=== PATIENT | female | born 2000 | race Caucasian/White ===

== ENCOUNTER 2020-04-12 09:08 | Emergency (ER) | payer BC, SELFPAY ==
--- NOTE | ~2020-04-12 | XR_ITS ---
EXAMINATION: XR chest 1V portable DATE: 04/12/2020 09:55 INDICATION: Syncope. TECHNIQUE: A single frontal view of the chest was obtained. COMPARISON: None. FINDINGS: A calcified left lung nodule is consistent with old granulomatous disease. No pleural effus ion or pneumothorax. The heart size is normal. IMPRESSION: 1. No acute cardiopulmonary disease. Reviewed, dictated and finalized at location B.
[2020-04-12 09:05] VITALS: BP 117/76; PULSE 70; RESP 18; TEMP 36.6; O2SAT 99
[2020-04-12 09:09] VITALS: PULSE 59
--- NOTE | 2020-04-12 09:11 | ECG_ITS ---
Measurements Intervals [place] Rate: 59 P: 24 VA: 138 QRS: 66 QRSD: 93 T: 47 QT: 384 QTc: 382 Interpretive Statements SINUS BRADYCARDIA WITH SINUS ARRHYTHMIA BASELINE ARTIFACT- I, II, III, AVR, AVL, AVF BORDERLINE ECG Electronically Signed On 04-12-2020 12:37:21 CDT by Steven Hammer D.O.
--- NOTE | 2020-04-12 09:18 | ED.SYNCOPE ---
HPI - Syncope General Chief Complaint: Syncope Stated Complaint: Syncopal Source: RN notes reviewed History of Present Illness HPI narrative: Patient presents emergency department via EMS for syncopal episode. Patient states she was at college today on syllabus daily or staying appearing the syllabus be red when she began to feel hot and sweaty. She states she was given aspirin go to the restroom to get a drink when she had a syncopal episode. She states she felt fine prior to going to class and states she feels fine at this time with no other symptoms. She denies any recent illness. Denies any fevers or chills chest pain shortness of breath abdominal pain nausea vomiting or any other symptoms Related Data Allergies Allergy/AdvReac Type Severity Reaction Status Date / Time No Known Allergies Allergy Verified 04/12/20 09:10 Review of Systems Review of Systems: Narrative: Gen.: Denies fevers or chills ENT: Denies congestion Respiratory: Denies shortness of breath or cough CV: See HPI GI: Denies abdominal pain nausea, emesis or diarrhea Musculoskeletal: Denies back pain or muscle pain Neuro: Denies numbness, tingling, weakness or focal weakness Skin: Denies rash Except as documented, all other systems reviewed and negative [facility] Past Medical History Medical History (Updated 04/12/20 @ 11:19 by Joaquni Uriarte DO) Patient denies significant medical history Social History Social History (Updated 04/12/20 @ 09:19 by Joaquin Uriarte DO) Smoking status: Never smoker Exam Narrative: Exam Narrative: APPEARANCE: No acute distress, nontoxic, resting in bed EYES: EOMI HEENT: Normocephalic, atraumatic, OMM RESPIRATORY: No respiratory distress Clear to auscultation bilaterally with no rhonchi wheezing or rales. CARDIOVASCULAR: Regular rate and rhythm without murmurs rubs or gallops. ABDOMINAL: Soft, nontender, nondistended, no rebound or guarding MUSCULOSKELETAl: Moves all extremities. No clubbing, cyanosis or edema. NEURO: Awake and alert x 3. Following commands, speech normal, no focal deficits SKIN:: Warm, dry. No rashes lesions or abrasions PSYCHIATRIC: Normal affect/mood, Course Course Emergency Course: Discussed with patient results of workup and diagnosis. Discussed need for follow-up with primary care, proper use of medication, and reasons to return to the emergency department. Patient understands and agrees to current treatment plan Vital Signs Vital signs: Vital Signs Temperature 97.8 F 04/12/20 09:05 Pulse Rate 70 04/12/20 09:05 Respiratory Rate 18 04/12/20 09:05 Blood Pressure 117/76 04/12/20 09:05 Pulse Oximetry 99 04/12/20 09:05 Temperature 97.8 F 04/12/20 09:05 Pulse Rate 64 04/12/20 11:01 Respiratory Rate 18 04/12/20 09:05 Blood Pressure 126/65 04/12/20 11:01 Pulse Oximetry 99 04/12/20 09:05 MDM - Syncope MDM Narrative Medical decision making narrative: Patient's episode of syncope is felt due to high risk cause. Syncopal episode was brief and patient is now back to normal mental status. EKG is reviewed without high-risk changes for syncope: There are no signs of prolonged QT or Brugada syndrome. Patient ambulates with a steady gait and is felt to be a reasonable candidate for further evaluation as an outpatient Lab Data Result diagrams: 04/12/20 09:31 04/12/20 09:31 Labs: Lab Results 04/12/20 04/12/20 04/12/20 Range/Units 09:31 09:31 09:32 WBC 6.8 (4.5-10.0) K/mm3 RBC 4.62 (4.2-5.4) M/mm3 Hgb 13.6 (12.0-15.0) g/dL Hct 39.4 (37.0-47.0) % MCV 85.3 (80-100) fl MCH 29.4 (26-34) pg MCHC 34.5 (32-36) g/dl RDW 11.4 L (11.5-14.5) % Plt Count 261 (150-375) k/mm3 MPV 10.3 (7.4-10.4) fl Immature Gran % (Auto) 0.4 (0-0.5) % Neut % (Auto) 64.5 (45.5-73.1) % Lymph % (Auto) 27.8 (18.3-44.2) % [place] % (Auto) 5.1 (2.6-8.5) % Eos % (Auto) 1.6 (0-4.4) % Baso %
[2020-04-12 09:39] LABS: Basophils Percent Auto 0.6 % (0.2-1.2); Eosinophils Absolute Auto 0.1 K/mm3 (0-0.3); Eosinophils Percent Auto 1.6 % (0-4.4); Hematocrit 39.4 % (37.0-47.0); Hemoglobin 13.6 g/dL (12.0-15.0); Immature Granulocyte Absolute 0.03 K/mm3 (0.00-0.031); Immature Granulocyte Percent A 0.4 % (0-0.5); Lymphocytes Percent Auto 27.8 % (18.3-44.2); Mean Corpuscular HGB Conc 34.5 g/dl (32-36); Mean Corpuscular Hemoglobin 29.4 pg (26-34); Mean Corpuscular Volume 85.3 fl (80-100); Mean Platelet Volume 10.3 fl (7.4-10.4); Monocytes Absolute Auto 0.4 K/mm3 (0.1-0.6); Monocytes Percent Auto 5.1 % (2.6-8.5); Neutrophils Absolute Auto 4.4 K/mm3 (1.3-6.7); Neutrophils Percent Auto 64.5 % (45.5-73.1); Platelet Count Result 261 k/mm3 (150-375); Red Blood Count 4.62 M/mm3 (4.2-5.4); Red Cell Distribution Width 11.4 % (11.5-14.5); White Blood Count 6.8 K/mm3 (4.5-10.0)
[2020-04-12 09:42] LABS: Add Urine Microscopic? YES; Appearance Urine Cloudy (Clear); Bacteria Urine Trace /hpf; Bilirubin Urine Negative (Negative); Blood Urine 1+ (Negative); Color Urine Yellow (Yellow); Glucose Urine UA Negative (Negative); Ketones Urine Negative (Negative); Leukocyte Esterase Ur 1+ LEU/UL (Negative); Mucus Urine Moderate /lpf; Nitrate Urine Negative (Negative); Protein Urine 1+ mg/dL (Negative); Squamous Epithelial Cell Urine Moderate /hpf (Few); WBC Urine 16-20 /hpf
[2020-04-12 09:54] LABS: Alanine Aminotransferase 12 U/L (4-35); Albumin Level 4.8 g/dL (3.7-5.6); Alkaline Phosphatase 44 U/L (45-116); Anion Gap 10 mmol/L (8-16); Aspartate Amino Transferase 23 U/L (14-36); Bilirubin,Total 0.8 mg/dL (0.2-1.3); Blood Urea Nitrogen 15 mg/dL (8-21); Calcium 9.7 mg/dL (8.9-10.7); Carbon Dioxide 27 mmol/L (22-30); Chloride 102 mmol/L (98-107); Estimated CRCL calculation 92 ml/min; Estimated Glomerular Filt Rate > 60; Glucose 84 mg/dL (65-105); Potassium 3.4 mmol/L (3.4-5.0); Sodium 139 mmol/L (134-143)
[2020-04-12] MEDS: SODIUM CHLORIDE 0.9% IV 1,000 ML 999 ML IV CONT (10:01)
[2020-04-12 10:05] LABS: Troponin I < 0.012 ng/mL (0.000-0.034)
[2020-04-12 10:59] VITALS: BP 110/57; PULSE 65
[2020-04-12 11:00] VITALS: BP 114/70; PULSE 65
[2020-04-12 11:01] VITALS: BP 126/65; PULSE 64
[2020-04-12 11:26] VITALS: BP 108/72; PULSE 66; RESP 25; O2SAT 98
[2020-04-12] MEDS: NITROFURANTOIN MONOHYD MACROCR 100 MG CAP PO (11:34)
== END 2020-04-12 11:41 | disposition home or self-care (01) ==
PROVIDERS: Emergency Provider Emergency Medicine
DX: N39.0 Urinary tract infection, site not specified (principal); R55 Syncope and collapse; R00.1 Bradycardia, unspecified
CPT/HCPCS: 36415; 71045; 80053; 81001; 81025; 84484; 85025; 87086; 87088; 93005; 96360; 99284; A9270; J7030

== ENCOUNTER 2022-05-03 13:58 | Emergency (ER) | payer BC, SELFPAY ==
--- NOTE | ~2022-05-03 | XR_ITS ---
EXAM: XR knee RT min 4V DATE: 05/03/2022 14:34 HISTORY: pain, injury, felt a pop after landing wrong in basketball . COMPARISON: None available. FINDINGS: Normal mineralization. No fracture or dislocation. No lytic or blastic lesion. Joint space s are maintained. No erosion or periosteal change. Soft tissues within normal limits. IMPRESSION: No acute finding in the right knee. Reviewed, dictated and finalized at location K.
[2022-05-03 14:00] VITALS: BP 126/50; PULSE 81; RESP 18; TEMP 37; O2SAT 100
--- NOTE | 2022-05-03 14:57 | ED.LOWEXIN ---
HPI - Extremity Injury (Lower) General Chief Complaint: Extremity Injury, Lower Stated Complaint: right knee injury Time Seen by Provider: 05/03/22 14:12 Source: patient Mode of arrival: ambulatory Limitations: no limitations History of Present Illness HPI Narrative: Patient is a 22-year-old female who presents the ED with report of right knee pain. Patient reports she injured her right knee several years ago and has had intermittent feelings of instability and her knee giving out. Today she reports she played basketball and jumped up and felt her knee pop out laterally as she landed back down. She complains of worsening pain to her right posterior knee currently. She has been able to ambulate, but has pain with this, pain worse with full extension of her knee. No numbness, tingling. No ankle pain, hip pain. Related Data Allergies Allergy/AdvReac Type Severity Reaction Status Date / Time No Known Allergies Allergy Verified 04/12/20 09:10 Review of Systems Review of Systems: CONSTITUTIONAL: Denies fever, chills, or sweats. SKIN: Reports swelling to R posterior knee. MUSCULOSKELETAL: Reports pain to R posterior knee. Denies R ankle or hip pain. NEUROLOGIC: Denies tingling, numbness, or weakness. All systems reviewed & are unremarkable except as noted in HPI and below PMFSH Past Medical History Medical History No pertinent past medical history Surgical History Surgical History (Updated 05/03/22 @ 15:02 by Savi Zepeda PA-C) No pertinent past surgical history Social History Social History Smoking status: Never smoker Exam Narrative: GENERAL: Well appearing, thin, non-toxic, in no acute distress. HEAD: Normocephalic, atraumatic. NECK: Supple. No adenopathy, no masses. RESPIRATORY: Airway patent, respirations nonlabored. CARDIOVASCULAR: Regular rate and rhythm without murmurs, rubs, or gallops. Pedal pulses 2+ and equal bilaterally. MUSCULOSKELETAL: Moves all extremities. Limited flexion and especially extension range of motion of right knee due to pain. Mild swelling to popliteal region of right knee. No significant anterior joint space tenderness. Mild tenderness to palpation over posterior knee. No Campos's cyst felt. SKIN: Warm, dry, normal color. No rashes. NEURO: A&O X3. Speech clear. Cranial nerves II-XII grossly intact. Steady gait. No ataxic movements. PSYCHIATRIC: Appropriate mood and affect. Normal interaction. Course Vital Signs Vital signs: Vital Signs Temperature 98.6 F 05/03/22 14:00 Pulse Rate 81 05/03/22 14:00 Respiratory Rate 18 05/03/22 14:00 Blood Pressure 126/50 L 05/03/22 14:00 Pulse Oximetry 100 05/03/22 14:00 Oxygen Delivery Room Air 05/03/22 14:00 Temperature 98.6 F 05/03/22 14:00 Pulse Rate 68 05/03/22 15:59 Respiratory Rate 14 05/03/22 15:59 Blood Pressure 126/87 05/03/22 15:59 Pulse Oximetry 98 05/03/22 15:59 Oxygen Delivery Room Air 05/03/22 14:00 MDM - Extremity Injury (Lower) MDM Narrative Medical decision making narrative: Patient's injury is consistent with musculoskeletal etiology. No signs of neurologic or vascular compromise on physical examination. Compartments are soft without signs of compartment syndrome. Pain is consistent with exam and injury. Patient is felt to be stable for discharge home and further outpatient management and treatment. Patient likely with internal derangement of right knee. Knee immobilizer placed. Patient will be given orthopedic information for follow-up. Discussed RICE treatment and reasons to return to the ED. She agrees with plan. Medical Records Attestation: I reviewed the patient's medical records. Imaging Data Attestation: I personally reviewed and interpreted this imaging study as follows: Radiologist's impression: ITS Impressions Knee X-Ray 05/03/22
[2022-05-03] MEDS: IBUPROFEN 600 MG TABLET PO (15:27)
[2022-05-03 15:59] VITALS: BP 126/87; PULSE 68; RESP 14; O2SAT 98
== END 2022-05-03 16:00 | disposition home or self-care (01) ==
PROVIDERS: Emergency Provider General Practice
DX: S83.91XA Sprain of unspecified site of right knee, initial encounter (principal); M23.91 Unspecified internal derangement of right knee; X50.0XXA Overexertion from strenuous movement or load, initial encounter; Y93.67 Activity, basketball
CPT/HCPCS: 73564; 99283; A9270

== ENCOUNTER → 2022-05-21 16:09 | Outpatient (CLI) | payer BC, SELFPAY ==
--- NOTE | ~2022-05-21 | MR_ITS ---
EXAMINATION: MR knee RT wo con DATE: 05/21/2022 17:16 INDICATION: Right knee pain and inability to straighten the knee TECHNIQUE: Magnetic resonance imaging (MRI) of the right knee was performed without intravenous contr ast. Sequences included coronal PD-weighted FSE, coronal PD-weighted FS FSE, sagittal T2-weighted FS E, sagittal PD-weighted FS FSE and axial PD weighted fat saturated FSE. COMPARISON: None. FINDINGS: Medial compartment: Complex tear of the medial meniscus. This includes a bucket-handle tear with displaced flap which com prise approximately half of the meniscal volume and which extends AP along the medial side of the int ercondylar eminence. There is an additional longitudinal tear plane involving the nondisplaced portio n of the body and posterior horn of the medial meniscus. Articular cartilage is normal. Lateral compartment: Lateral meniscus is normal. Articular cartilage is normal. Patellofemoral compartment: Articular cartilage is normal. Ligaments and tendons: At least partial and more likely complete tear at the femoral insertion of the anterior cruciate liga ment. The posterior cruciate ligament is normal. The medial collateral ligament is normal. There is t hickening and increased intrasubstance signal of the proximal half of the fibular collateral ligament without surrounding edema consistent with scarring related to chronic partial tear. The extensor mec hanism is normal. The visualized medial and lateral hamstring tendons as well as the iliotibial band are normal. Fluid: Moderate-sized right knee joint effusion at the suprapatellar pouch. No loose osteochondral bodies id entified. Osseous/other: 0.5 cm lateral patellar subluxation. Alignment is otherwise normal. Normal bone marrow signal through out. No fracture or pathologic marrow replacing process. IMPRESSION: 1. At least partial and more likely complete tear at the femoral origin of the anterior cruciate liga ment. 2. Complex medial meniscal tear which includes a laterally displaced meniscal bucket-handle flap and additional jejunal tear in the nondisplaced portion of the body and posterior horn. 3. 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 4. Moderate-sized right knee joint effusion. Reviewed, dictated and finalized at location A. IMPRESSION: 1. At least partial and more likely complete tear at the femoral origin of the anterior cruciate ligament. 2. Complex medial meniscal tear which includes a laterally displaced meniscal b ucket-handle flap and additional jejunal tear in the nondisplaced portion of th e body and posterior horn. 3. Scarring consistent with chronic partial tear of the proximal fibular collat eral ligament. 4. Moderate-sized right knee joint effusion.
== END ==
PROVIDERS: PCP Nurse Practitioner Family; Visit Provider Physician Assistant Surgical
DX: M25.461 Effusion, right knee (principal); S83.231A Complex tear of medial meniscus, current injury, right knee, initial encounter; X58.XXXA Exposure to other specified factors, initial encounter
CPT/HCPCS: 73721

== ENCOUNTER 2022-10-24 09:30 | Emergency (ER) | payer BC, SELFPAY ==
[2022-10-24 09:43] VITALS: BP 102/65; PULSE 102; RESP 16; TEMP 36.4; O2SAT 100
--- NOTE | 2022-10-24 10:36 | ED.URI ---
HPI - URI/Sore Throat General Chief Complaint: Upper Respiratory Infection Stated Complaint: swollen tonsil, trouble swallowing Time Seen by Provider: 10/24/22 10:36 Source: patient, RN notes reviewed and old records reviewed Mode of arrival: ambulatory Limitations: no limitations History of Present Illness HPI Narrative: 22 year old female who presents to [facility] care with complaints of sore throat, tonsil swelling with painful swallowing for the past 2 days. Patient reports that she has had low grade fevers and chills also for the past 2 days and has taken Ibuprofen for pain and fevers with last dose at 0500. Patient reports that she has had problems with reoccurring tonsil swelling and pain since June and has an appointment with ENT but couldn't get in for several weeks. MD elicited complaint: sore throat Pertinent past history: other (reoccurring tonsil swelling with pain) Onset (ago): day(s) (2) Consistency: constant Pain scale (0-10): 3 Associated symptoms: fever, chills, rhinorrhea, nasal congestion, sore throat and other (tonsil swelling) Treatments prior to arrival: ibuprofen Related Data Home Medications Medication Instructions Recorded Confirmed norgestimate 0.18 mg/0.215 mg/0.25 1 tablet DAILY 10/24/22 10/24/22 mg-ethinyl estradiol 25 mcg tablet ([id number]) Allergies Allergy/AdvReac Type Severity Reaction Status Date / Time No Known Allergies Allergy Verified 10/24/22 10:02 Review of Systems Review of Systems: CONSTITUTIONAL Reports malaise, chills, sweats, or fever. EYES: Denies visual changes, redness, or discharge. ENT: Reports rhinorrhea, congestion,no sinus pain, no otalgia positive for sore throat. CARDIOVASCULAR: Denies chest pain, palpitations, or edema. RESPIRATORY: Reports no cough.? Denies dyspnea. GASTROINTESTINAL: Denies abdominal pain, nausea, vomiting, diarrhea SKIN: Denies rash or itching. MUSCULOSKELETAL: Denies myalgia. NEUROLOGIC: Denies headache. All systems reviewed & are unremarkable except as noted in HPI and below PMFSH Past Medical History Medical History No pertinent past medical history Surgical History Surgical History History of dental surgery [place] teeth removal Family History Family History Mother Thyroid cancer Social History Social History Smoking status: Never smoker Alcohol intake: current Substance use: never Substance use type: does not use Comments At time of signature, agree with nursing past medical, surgical, social and family history. There is no relevant family history pertinent to the presenting complaint Exam Narrative: GENERAL: Well-appearing, well-nourished, and in no acute distress. HEAD: Normocephalic EYES: PERRLA, conjunctivae clear ENT: Nares clear, turbinates edematous and erythematous, clear discharge. Mucous membranes moist. TM pearly jones with dull light reflex bilaterally; no tragal tenderness. Oropharynx erythematous without lesions. Tonsils red enlarged with white spots noted on right tonsil which is more enlarged than left, painful swallowing, no drooling, no hoarseness, no trismus, uvula midline. NECK: Supple. lymphadenopathy CHEST: Clear to auscultation, breath sounds equal. No wheezing, rhonchi, rales, or stridor. No respiratory distress, speaks in full sentences.no cough noted SAO2 100% on room air HEART: Regular rate and rhythm. No murmur heard. SKIN: Warm, dry, no rash. NEURO: Alert and oriented x3. PSYCH: Normal mood and affect Course Course Emergency Course: Patient is aware of diagnosis, understands and agrees to treatment plan.? Anticipatory guidance given.? Patient agrees to follow-up as directed and is aware of reasons to seek car
== END 2022-10-24 10:58 | disposition home or self-care (01) ==
PROVIDERS: Emergency Provider Registered Nurse; PCP Nurse Practitioner Family
DX: J03.90 Acute tonsillitis, unspecified (principal)
CPT/HCPCS: 87081; 87880; 99213; G0463

== ENCOUNTER 2023-01-01 11:20 | Emergency (ER) | payer BC, SELFPAY ==
--- NOTE | 2023-01-01 11:29 | ED.GENADULT ---
HPI - General Adult General Chief complaint: Urogenital-Female Stated complaint: uit complaints Source: patient and RN notes reviewed History of Present Illness HPI narrative: 22-year-old female presents to urgent care with complaints burning urination and urinary frequency since Thursday. Patient denies any fevers, chills, vomiting, abdominal pain, or back pain. Patient has taken [id number] azo last night and this morning good relief. Some parts of this dictation were generated by voice recognition software and may contain typographical and/or grammatical inaccuracies. Related Data Home Medications Medication Instructions Recorded Confirmed norgestimate 0.18 mg/0.215 mg/0.25 1 tablet DAILY 10/24/22 01/01/23 mg-ethinyl estradiol 25 mcg tablet ([id number]) Allergies Allergy/AdvReac Type Severity Reaction Status Date / Time No Known Allergies Allergy Verified 01/01/23 11:43 Review of Systems Review of Systems: Pertinent positives and pertinent negatives per HPI. [facility] Past Medical History Medical History No pertinent past medical history Surgical History Surgical History History of dental surgery [place] teeth removal Family History Family History Mother Thyroid cancer Social History Social History Smoking status: Never smoker Alcohol intake: current Substance use: never Substance use type: does not use Comments At the time of my signature, I reviewed and agree with the nursing past medical, surgical, social, and family history. There is no relevant family history pertinent to the patient complaint. Exam Narrative: GENERAL: This is a well-nourished, well-developed patient, in no apparent distress. HEAD: normocephalic, atraumatic. EYES: Sclera clear/white. Vision is grossly intact. EARS: External ears normal, auditory canals clear and without drainage. Hearing grossly intact. NOSE: External nose normal with no obvious nasal discharge, nares without redness, no rhinorrhea. THROAT: Mucous membranes moist, posterior pharynx clear. NECK: Neck supple, non-tender without lymphadenopathy, masses or thyromegaly. CARDIOVASCULAR: Regular rate RESPIRATORY: no respiratory distress GASTROINTESTINAL: Abdomen soft, non-tender, nondistended. Bowel sounds are active. No hepato-splenomegaly, or palpable masses. No guarding. SKIN: warm, intact with no suspicious lesions or rash, good texture and turgor. NEURO: awake, alert, and oriented to person, place and time. There were no obvious focal neurologic abnormalities. Course Course Level of Care: Express Care Visit Vital Signs Vital signs: Vital Signs Temperature 97.7 F 01/01/23 11:33 Pulse Rate 96 01/01/23 11:33 Respiratory Rate 20 01/01/23 11:33 Blood Pressure 106/75 01/01/23 11:33 Pulse Oximetry 100 01/01/23 11:33 Temperature 97.7 F 01/01/23 11:33 Pulse Rate 96 01/01/23 11:33 Respiratory Rate 20 01/01/23 11:33 Blood Pressure 106/75 01/01/23 11:33 Pulse Oximetry 100 01/01/23 11:33 reviewed Medical Decision Making MDM Narrative Medical decision making narrative: We will send a urine culture off to the lab; if the culture identifies an organism that the prescribed antibiotic will not treat, you will receive a phone call from an urgent care staff member and an appropriate antibiotic will be prescribed. -Your symptoms should begin to improve within a day of starting antibiotics. But you should finish all the antibiotic pills you get. Otherwise your infection might come back. -Also recommend: drink more fluid. It might help flush out germs, and it does no harm -Tylenol/ibuprofen as needed for pain -Follow-up with your primary care provider for urine rechec
[2023-01-01 11:33] VITALS: BP 106/75; PULSE 96; RESP 20; TEMP 36.5; O2SAT 100
== END 2023-01-01 11:51 | disposition home or self-care (01) ==
PROVIDERS: Emergency Provider Nurse Practitioner Family; PCP Nurse Practitioner Family
DX: N39.0 Urinary tract infection, site not specified (principal)
CPT/HCPCS: 81003; 81025; 87086; 87088; 99213; G0463

== ENCOUNTER 2023-03-04 12:12 | Emergency (ER) | payer BC, SELFPAY ==
--- NOTE | 2023-03-04 12:13 | ED.FEMALEGU ---
HPI - Female Genitourinary General Chief complaint: Urogenital-Female Stated complaint: UTI SYMPTOMS Time Seen by Provider: 03/04/23 12:13 Source: patient and RN notes reviewed History of Present Illness HPI Narrative: Patient is a 22-year-old female who presents to urgent care with complaints of a burning sensation off and on with urination and some slight suprapubic pressure since Thursday. Patient stated is not consistent. Patient was seen at our facility in December for the exact same symptoms and placed on Macrobid at that time. Patient's urinary culture was negative. Patient states that she has been on several different antibiotics recently after having her tonsils removed. Currently denies any frequency, urgency, abdominal pain, nausea or vomiting. Patient has again been taking azo. Patient also reports of increasing water intake and drinking cranberry juice. No other acute complaints. No acute distress noted. Patient aware of the plan of care. Some parts of this dictation were generated by voice recognition software and may contain typographical and/or grammatical inaccuracies. Related Data Home Medications Medication Instructions Recorded Confirmed norgestimate 0.18 mg/0.215 mg/0.25 1 tablet PO DAILY 10/24/22 03/04/23 mg-ethinyl estradiol 25 mcg tablet ([id number]) Allergies Allergy/AdvReac Type Severity Reaction Status Date / Time No Known Allergies Allergy Verified 03/04/23 12:22 Review of Systems Review of Systems: CONSTITUTIONAL: Denies fever, chills, or sweats. EYES: Denies visual changes, redness, or discharge. ENT: Denies rhinorrhea, congestion, sore throat, or otalgia. CARDIOVASCULAR: Denies chest pain, palpitations, or edema. RESPIRATORY: Denies cough or dyspnea. GASTROINTESTINAL: Denies abdominal pain, nausea, vomiting, or diarrhea. GENITOURINARY: Reports of dysuria and suprapubic pressure SKIN: Denies rash or itching. MUSCULOSKELETAL: Denies back pain, joint pain, or myalgia. NEUROLOGIC: Denies headache, numbness, or weakness. All other systems reviewed are negative, except as documented in HPI. [facility] Past Medical History Medical History No pertinent past medical history Surgical History Surgical History History of dental surgery [place] teeth removal Family History Family History Mother Thyroid cancer Social History Social History Smoking status: Never smoker Alcohol intake: current Substance use: never Substance use type: does not use Comments At the time of my signature, I reviewed and agree with the nursing past medical, surgical, social, and family history. There is no relevant family history pertinent to the patient complaint. Exam Narrative: GENERAL: This is a well-nourished, well-developed patient, in no apparent distress. HEAD: normocephalic, atraumatic. EYES: PERRL. Sclera clear/white. Vision is grossly intact. EARS: External ears normal NOSE: External nose normal with no obvious nasal discharge, nares without redness, no rhinorrhea. THROAT: Mucous membranes moist NECK: Neck supple, GASTROINTESTINAL: Abdomen soft, non-tender, nondistended. SKIN: warm, intact with no suspicious lesions or rash, good texture and turgor. NEURO: awake, alert, and oriented to person, place and time. There were no obvious focal neurologic abnormalities. EXTREMITIES: No clubbing, cyanosis, or edema. BACK: Negative bilateral CVA Course Course Level of Care: Express Care Visit Vital Signs Vital signs: Vital Signs Temperature 98.2 F 03/04/23 12:22 Pulse Rate 84 03/04/23 12:22 Respiratory Rate 16 03/04/23 12:22 Blood Pressure 112/60 03/04/23 12:22 Pulse Oximetry 100 03/04/23 12:22 Temperature 98.2 F
[2023-03-04 12:22] VITALS: BP 112/60; PULSE 84; RESP 16; TEMP 36.8; O2SAT 100
== END 2023-03-04 12:38 | disposition home or self-care (01) ==
PROVIDERS: Emergency Provider Nurse Practitioner Family; PCP Nurse Practitioner Family
DX: R30.0 Dysuria (principal)
CPT/HCPCS: 81003; 87077; 87086; 87186; 99213; G0463